=== PATIENT | male | born 1995 | race Caucasian/White ===

== ENCOUNTER 2016-10-12 17:13 | Emergency (ER) | payer BC ==
[~2016-10-12] VITALS: Ht 177.8 cm; Wt 73.9 kg
[2016-10-12] MEDS ORDERED: IV NORMAL SALINE 1,000ML 1,000 ML IV SCH (17:14)
[2016-10-12 17:36] VITALS: BP 141/98
--- NOTE | 2016-10-12 17:36 | ED.ADGEN ---
Past History Past Medical History: Other Past Surgical History: No Surgical History Alcohol Use: Occasionally Drug Use: Marijuana Adult General Chief Complaint Chief Complaint " I got this groin infection..."... here on the right" HPI HPI Patient is a 21 year old male who presents with above hx and complaints of area cellulitis right lower groin. Some adenopathy. No abscess. Patient normally healthy. Patient up-to-date vaccinations. Patient follows with Dr. Haile. No recent travel. No specific ill contacts. Has been present for days. Patient has had arsenic 10 unprotected sexual partners. Patient does complain of some dysuria and penile discharge. Review of Systems Review of Systems Constitutional: Denies fever or chills [] Eyes: Denies change in visual acuity, redness, or eye pain [] HENT: Denies nasal congestion or sore throat [] Respiratory: Denies cough or shortness of breath [] Cardiovascular: No additional information not addressed in HPI [] GI: Denies abdominal pain, nausea, vomiting, bloody stools or diarrhea [] : Denies dysuria or hematuria [] Musculoskeletal: Denies back pain or joint pain [] Integument: Complaints of rash Neurologic: Denies headache, focal weakness or sensory changes [] Endocrine: Denies polyuria or polydipsia [] Family History Family History Noncontributory Current Medications Current Medications Current Medications Medications (Trade) Dose Ordered Sig/Jean Carlos Start Time Stop Time Status Last Admin Dose Admin Azithromycin (Zithromax) 2,000 mg 1X ONCE 10/12/16 19:15 10/12/16 19:16 DC 10/12/16 19:05 2,000 MG Metronidazole (Flagyl) 2,000 mg 1X ONCE 10/12/16 19:15 10/12/16 19:16 DC 10/12/16 19:05 2,000 MG Naloxone HCl (Narcan) 0.4 mg 1X ONCE 10/12/16 17:45 10/12/16 17:45 DC Ondansetron HCl (Zofran Odt) 8 mg 1X ONCE 10/12/16 19:15 10/12/16 19:16 DC 10/12/16 19:06 8 MG Sodium Chloride (Iv Sodium Chloride 0.9% 1,000ml) 1,000 ml @ 1,000 mls/hr Q1H 10/12/16 17:14 10/12/16 17:20 [place] See nursing for home meds Allergies Allergies Allergies Coded Allergies Type Severity Reaction Last Updated Verified Penicillins Allergy Intermediate Rash/Hives 10/12/16 Yes Physical Exam Physical Exam Constitutional: Well developed, well nourished, no acute distress, non-toxic appearance. [] HENT: Normocephalic, atraumatic, bilateral external ears normal, oropharynx moist, no oral exudates, nose normal. [] Eyes: PERRLA, EOMI, conjunctiva normal, no discharge. [] Neck: Normal range of motion, no tenderness, supple, no stridor. [] Cardiovascular:Heart rate regular rhythm, no murmur [] Lungs & Thorax: Bilateral breath sounds clear to auscultation [] Abdomen: Bowel sounds normal, soft, no tenderness, no masses, no pulsatile masses. [] Skin: Warm, dry, no erythema, area nonspecific dermatitis and groin. Back: No tenderness, no CVA tenderness. [] Extremities: No tenderness, no cyanosis, no clubbing, ROM intact, no edema. [] Neurologic: Alert and oriented X 3, normal motor function, normal sensory function, no focal deficits noted. [] Psychologic: Affect normal, judgement normal, mood normal. [] Current Patient Data Vital Signs Vital Signs Date Time Temp Pulse Resp B/P Pulse Ox O2 Delivery O2 Flow Rate FiO2 10/12/16 19:19 97.8 10/12/16 17:36 70 18 98 Room Air Lab Results Laboratory Tests Test 10/12/16 18:20 10/12/16 19:10 Urine Collection Type Unknown Urine Color Straw Urine Clarity Clear Urine pH 7.0 Urine Specific [place] 1.015 Urine Protein Neg (NEG-TRACE) Urine Glucose (UA) Negmg/dL (NEG) Urine Ketones (Stick) Negmg/dL (NEG) Urine Blood Trace (NEG) Urine Nitrite Neg (NEG) Urine Bilirubin Neg (NEG) Urine Urobilinogen Dipstick 0.2mg/dL (0.2 mg/dL) Urine Leukocyte Esterase Neg (NEG) Urine RBC 1-2/HPF (0-2) Urine WBC Occ/HPF (0-4) Urine Squamous Epithelial Cells Few/LPF Urine Bacteria 0/HPF (0-FEW) RPR Titer Additional Testing Non reactive (Non Reactive) Hepatitis A IgM Antibody Negative (Negative) Hepatitis B Surface Antigen Negative (Negative) Hepatitis B Core IgM Antibody Negative (Negative) Hepatitis C Antibody <0.1s/co ratio (0.0-0.9) HIV-1 Antibody Non reactive (Non Reactive) EKG EKG [] Radiology/Procedures Radiology/Procedures [] Course & Med Decision Making Course & Med Decision Making Pertinent Labs and Imaging studies reviewed. (See chart for details). Primary care. Patient return if any concerns. Patient take meds as previous directed. Patient practice safe sex. Patient currently current meds. Patient review all labs and exam with primary. She obtained follow-up HIV testing. Patient follow-up all cultures taken here. Must follow-up. [] Final Impression Final Impression 1. Groin Pain[] 2. Small area nonspecific cellulitis Problems: Dragon Disclaimer Dragon Disclaimer This electronic medical record was generated, in whole or in part, using a voice recognition dictation system. CL MALIK MD Oct 12, 2016 17:36
[2016-10-12] MEDS ORDERED: NALOXONE 0.4 MG/ML VIAL. IV ONE (17:45)
[2016-10-12] MEDS ORDERED: SULF1TAB24 PO (18:57)
[2016-10-12] MEDS ORDERED: ONDANSETRON ODT 4 MG TAB.RAPDIS PO ONE (19:15)
[2016-10-12] MEDS ORDERED: METRONIDAZOLE 500 MG TABLET PO ONE (19:15)
[2016-10-12] MEDS ORDERED: AZITHROMYCIN 250 MG TABLET. PO ONE (19:15)
[2016-10-12 19:16] LABS: CLARITY,URINE CLEAR; COLOR,URINE STRAW
[2016-10-12 19:17] LABS: BACTERIA,URINE 0 /HPF (0-FEW); BILIRUBIN,URINE NEG (NEG); GLUCOSE,URINE NEG (NEG); NITRITE,URINE NEG (NEG); SQUAMOUS EPITHELIAL CELL,UR FEW /LPF; UROBILINOGEN,URINE 0.2 mg/dL (0.2 mg/dL); WBC,URINE OCC /HPF (0-4)
[2016-10-13 23:10] LABS: HCV ANTIBODY <0.1 s/co ratio (0.0-0.9); HEP A IGM ABDY Negative (Negative)
[2016-10-14 05:09] LABS: RPR REFLEX Non Reactive (Non Reactive)
== END 2016-10-12 19:19 | disposition home or self-care (01) ==
LOC: ER 17:36
DX: R10.30 Lower abdominal pain, unspecified (principal); R30.0 Dysuria; R36.9 Urethral discharge, unspecified; F12.10 Cannabis abuse, uncomplicated; Z88.0 Allergy status to penicillin
CPT/HCPCS: 36415; 80074; 81001; 86592; 86593; 86703; 99284; J0456; Q0162

== ENCOUNTER 2018-01-09 08:32 | Emergency (ER) | payer BC ==
[~2018-01-09] VITALS: Ht 177.8 cm; Wt 73.9 kg
[2018-01-09 08:32] VITALS: BP 136/82
[~2018-01-09 08:32] MED LIST: SULF1TAB24 PO
--- NOTE | 2018-01-09 08:56 | PHYS DOC ---
Past History Past Medical History: Other Past Surgical History: No Surgical History Alcohol Use: None Drug Use: None Adult General Chief Complaint Chief Complaint: penile lesion HPI HPI 32-year-old male patient states he had a lesion on shaft of his penis for the last 1 week with mild itching and pain and enlarged lymph node in right groin for the last 2 days without fever and chills, generalized weakness, no discharge or urinary symptoms, abdominal pain. Patient states he had a new sexual partner for the last 2 months and denies history of STD. Review of Systems Review of Systems Constitutional: Denies fever or chills [] Eyes: Denies change in visual acuity, redness, or eye pain [] HENT: Denies nasal congestion or sore throat [] Respiratory: Denies cough or shortness of breath [] Cardiovascular: No additional information not addressed in HPI [] GI: Denies abdominal pain, nausea, vomiting, bloody stools or diarrhea [] : Denies dysuria or hematuria [] Musculoskeletal: Denies back pain or joint pain [] Integument: Denies rash or skin lesions [] Neurologic: Denies headache, focal weakness or sensory changes [] Endocrine: Denies polyuria or polydipsia [] All other systems were reviewed and found to be within normal limits, except as documented in this note. Allergies Allergies Allergies Coded Allergies Type Severity Reaction Last Updated Verified Penicillins Allergy Intermediate Rash/Hives 10/12/16 Yes Physical Exam Physical Exam Constitutional: Well developed, well nourished, no acute distress, non-toxic appearance. [] HENT: Normocephalic, atraumatic, bilateral external ears normal, oropharynx moist, no oral exudates, nose normal. [] Eyes: PERRLA, EOMI, conjunctiva normal, no discharge. [] Neck: Normal range of motion, no tenderness, supple, no stridor. [] Cardiovascular:Heart rate regular rhythm, no murmur [] Lungs & Thorax: Bilateral breath sounds clear to auscultation [] Abdomen: Bowel sounds normal, soft, no tenderness, no masses, no pulsatile masses. Genital exam present of bee robber showed 1 cm ulcer in dorsal side of penile shaft with 2 x 2 cm right inguinal lymphadenopathy with mild tenderness without sign of abscess[] Skin: Warm, dry, no erythema, no rash. [] Back: No tenderness, no CVA tenderness. [] Extremities: No tenderness, no cyanosis, no clubbing, ROM intact, no edema. [] Neurologic: Alert and oriented X 3, normal motor function, normal sensory function, no focal deficits noted. [] Psychologic: Affect normal, judgement normal, mood normal. [] EKG EKG [] Radiology/Procedures Radiology/Procedures [] Course & Med Decision Making Course & Med Decision Making Evaluation of patient in ER showed 22-year-old male patient who presented with penile ulcer and inguinal lymphadenopathy .Herpes PCR sample was obtaining an patient didn't want to have test for GC and chlamydia. Patient had treatment of Keflex for possible reactive lymphadenopathy with another reason of lymphadenopathy and informed about needs to follow up with the test result in few days about diagnose of genital herpes. Dragon Disclaimer Dragon Disclaimer This electronic medical record was generated, in whole or in part, using a voice recognition dictation system. Departure Departure: Impression: Primary Impression: Male genital ulcer Additional Impression: Inguinal adenopathy Disposition: HOME, SELF-CARE (At 0855) Condition: STABLE Referrals: DAVON GALE MD (PCP) Patient Instructions: Genital Herpes Additional Instructions: Avoid of unprotected sex Follow-up with your primary care physician in 3-5 days Return to ER if not getting better Scripts Cephalexin (KEFLEX) 500 Mg Capsule 2 CAP PO BID, #28 CAP Prov: ROHINI SEGURA MD 01/09/18 Problem Qualifiers ROHINI SEGURA MD Jan 09, 2018 08:56
[2018-01-09] MEDS ORDERED: CEPH-264 PO (09:00)
[2018-01-11 16:13] LABS: HERPES SIMPLEX TYPE 1 Negative (Negative); HERPES SIMPLEX TYPE 2 Negative (Negative)
== END 2018-01-09 09:05 | disposition home or self-care (01) ==
LOC: ER 08:32
DX: N48.5 Ulcer of penis (principal); R59.0 Localized enlarged lymph nodes; Z88.0 Allergy status to penicillin
CPT/HCPCS: 36415; 87529; 99283

== ENCOUNTER → 2021-02-10 | Emergency (ER) | payer BC, OTHER ==
[~2021-02-10] VITALS: Ht 177.8 cm; Wt 72.0 kg
[~2021-02-10] MED LIST changes: +CEPH-264 PO; +diazePAM 5 MG TABLET. PO ONE
[2021-02-10 19:03] VITALS: BP 131/90
--- NOTE | 2021-02-10 20:09 | PHYS DOC ---
Past History Past Medical History: Other Past Surgical History: Other Additional Past Surgical Histo: L5, SI ABNORMAL AMT FLUID, BACK PAIN Alcohol Use: Occasionally Drug Use: None Adult General Chief Complaint Chief Complaint: SHORTNESS OF BREATH HPI HPI Patient is an otherwise healthy 25-year-old male with a past medical history significant for ADHD on Adderall who presents with a chief complaint of feelings of anxiety and shortness of breath. States he was driving earlier and started feeling anxious and scared and felt like he could not catch his breath. Denies any chest pain, dyspnea on exertion, orthopnea, PND, history of CAD or family history of CAD, recent traumas, travels, illnesses, fevers, abdominal pain, nausea, vomiting, dysuria, hematuria or blood in the stool. Denies any other alcohol or drug use. States has been eating drinking normally. States he is making urine and stool normally. States that here in the emergency department his symptoms have resolved. Review of Systems Review of Systems Review of systems otherwise unremarkable except noted in HPI Current Medications Current Medications Current Medications Medications (Trade) Dose Ordered Sig/Jean Carlos Start Time Stop Time Status Last Admin Dose Admin Diazepam (Valium) 5 mg 1X ONCE 02/10/21 19:30 02/10/21 19:31 DC 02/10/21 19:33 5 MG Allergies Allergies Allergies Coded Allergies Type Severity Reaction Last Updated Verified Penicillins Allergy Intermediate Rash/Hives 10/12/16 Yes Physical Exam Physical Exam Constitutional: Well developed, well nourished, no acute distress, non-toxic appearance. [] HENT: Normocephalic, atraumatic, bilateral external ears normal, oropharynx moist, no oral exudates, nose normal. [] Eyes: PERRLA, EOMI, conjunctiva normal, no discharge. [] Neck: Normal range of motion, no tenderness, supple, no stridor. [] Cardiovascular:Heart rate regular rhythm, no murmur [] Lungs & Thorax: Bilateral breath sounds clear to auscultation [] Abdomen: soft, no tenderness, no masses, no pulsatile masses. [] Skin: Warm, dry, no erythema, no rash. [] Extremities: No tenderness, no cyanosis, no clubbing, ROM intact, no edema. [] Neurologic: Alert and oriented X 3, normal motor function, normal sensory function, able to sit, stand and walk without issue, no focal deficits noted. [] Psychologic: Affect normal, judgement normal, mood normal. [] Current Patient Data Vital Signs Vital Signs Date Time Temp Pulse Resp B/P (MAP) Pulse Ox O2 Delivery O2 Flow Rate FiO2 02/10/21 19:03 99.2 97 18 131/90 99 EKG EKG EKG with a rate of 90, QRS of 100, QTc of 432, no STEMI, normal sinus rhythm [] Radiology/Procedures Radiology/Procedures [] Heart Score C/O Chest Pain: No Risk Factors: Risk Factors: DM, Current or recent (<one month) smoker, HTN, HLP, family history of CAD, obesity. Risk Scores: Risk Factors: DM, Current or recent (<one month) smoker, HTN, HLP, family hist ory of CAD, obesity. Course & Med Decision Making Course & Med Decision Making Patient is a 25-year-old male who presents with a chief complaint of feelings of shortness of breath Vital signs not concerning. Physical exam noted above. EKG noted above and normal. Chest x-ray normal. Patient asymptomatic here in the emergency department. Given diazepam for anxiety which did relieve symptoms. Discussed ceasing the use of his Adderall as this is essentially methamphetamine/amphetamine and can cause the symptoms he is experiencing. Advised to call his primary care in the morning to discuss this. Gave return precautions to the ED. Family grateful, verbalized understanding agreed with plan of discharge. [] Dragon Disclaimer Dragon Disclaimer This electronic medical record was generated, in whole or in part, using a voice recognition dictation system. Departure Departure: Impression: Primary Impression: Shortness of breath Additional Impression: Anxiety Disposition: 01 HOME / SELF CARE / HOMELESS Condition: GOOD Referrals: DAVON GALE MD (PCP) Patient Instructions: Amphetamine; Dextroamphetamine tablets, Anxiety and Panic Attacks Additional Instructions: Thank you for coming into the emergency department tonight and allowing us to take care of you. Please read all the attached information above very carefully to go back over some of the things we discussed. As discussed I would probably cease taking your ADHD medicine to see how you respond and discussed this with your primary care physician. Please call your primary care physician first thing in the morning to update on ED visit and set up a follow-up appointment as soon as possible. Please come back to the emergency department immediately with new or concerning symptoms as discussed. Problem Qualifiers MONIE GARCIA MD Feb 10, 2021 20:09
--- NOTE | 2021-02-10 20:09 | RAD ---
Chest radiograph 02/10/2021 7:31 PM INDICATION: Shortness of breath COMPARISON: None available TECHNIQUE: Frontal and lateral views of the chest are provided. FINDINGS: The cardiomediastinal silhouette is within normal limits. There are no pleural effusions. There is no pulmonary vascular congestion. There is no pneumothorax. The lungs are clear. No significant osseous abnormality is identified. IMPRESSION: No acute cardiopulmonary process. Electronically signed by: Skylar Alexis MD (02/10/2021 8:06 PM) [facility]
--- NOTE | 2021-02-10 21:07 | EKG ---
[address] [address] Test Date: 2021-02-10 Test Time: 19:39:49 Pat Name: EVELIA SANDOVAL Department: Room: Gender: M [employer]: : 1995 Requested By: MONIE GARCIA Order Number: [id number] Reading MD: Measurements Intervals [place] Rate: 90 P: 39 CT: 184 QRS: 67 QRSD: 100 T: 60 QT: 350 QTc: 432 Interpretive Statements SINUS RHYTHM OTHERWISE NORMAL ECG RI6.02 No previous ECG available for comparison
== END | disposition home or self-care (01) ==
LOC: ER 19:03
DX: F41.9 Anxiety disorder, unspecified (principal); R06.02 Shortness of breath; Z88.0 Allergy status to penicillin
CPT/HCPCS: 71046; 93005; 99283